=== PATIENT | female | born 2000 | race Caucasian/White ===

== ENCOUNTER 2018-02-09 00:58 | Emergency (ER) | payer BC ==
[~2018-02-09] VITALS: Ht 162.6 cm; Wt 57.4 kg
[2018-02-09 01:07] VITALS: TEMP 36.5; O2SAT 98; Ht 162.6 cm; Wt 57.4 kg
--- NOTE | 2018-02-09 01:15 | EMERGENCY ROOM VISIT NOTE ---
History Report prepared by Zachary: Billy Gil Under the Supervision of: Dr. Pricilla Marina D.O. First contact with patient: 01:02 Stated Complaint: ETOH History of Present Illness HPI is limited due to altered mental state secondary to alcohol intoxication. The patient is a 17 year old female who presents to the Emergency Room via due to a recent alcohol overdose. EMS states the patient was found in the bathroom by her RA actively vomiting. Patient states she was at an apartment tonight drinking. She states she is a sophomore. She adds she brought herself back to school alone. She denies any other drug use or medical problems. Patient states her last menstrual period was a couple of weeks ago. Source of History: patient, EMS History Limited By: AMS (Alcohol intoxication) Onset: Recent Associated Symptoms: + vomiting Review of Systems ROS is limited due to altered mental state secondary to alcohol intoxication. Past Medical & Surgical Past medical & surgical history is limited due to altered mental state secondary to alcohol intoxication. Family History Family history is limited due to altered mental state secondary to alcohol intoxication. Social History Occupation Status: [employer] student Current/Historical Medications Scheduled Control Pills ( Control Pills), 1 TAB PO DAILY Allergies Coded Allergies: No Known Allergies (Unverified , 02/09/18) Physical Exam Vital Signs Date Time Temp Pulse Resp B/P (MAP) Pulse Ox O2 Delivery O2 Flow Rate FiO2 02/09/18 06:57 105 13 103/56 97 02/09/18 05:52 81 02/09/18 05:00 81 18 84/43 97 Room Air 02/09/18 03:36 94 18 95/53 99 Room Air 02/09/18 02:02 78 18 80/42 98 Room Air 02/09/18 01:10 80 02/09/18 01:07 36.5 86 18 131/97 98 Room Air 02/09/18 01:07 98 Room Air Physical Exam General: Patient is tearful and smells of alcohol. HEENT: Head - normocephalic and atraumatic Pupils are equal, round, 6mm, and reactive to light. Extraocular eye muscles are intact, and sclera are anicteric. Nose - moist nasal mucosa without discharge. Mouth - moist buccal mucosa. Oropharynx is nonerythematous and there is no tonsillar exudate or edema noted. Neck: Supple; no JVD, nuchal rigidity, cervical lymphadenopathy. Heart: Tachycardic rate and rhythm. There is a normal S1 and S2 with no murmurs , clicks, or gallops appreciated. Lungs: Clear to auscultation bilaterally with no wheezes, rales, or rhonchi. Abdomen: Soft, completely nontender, nondistended, with good bowel sounds. There are no palpable pulsatile masses or hepatosplenomegaly. There is no guarding, rigidity, or rebound noted. Extremities: No evidence of cyanosis, clubbing, or edema. There are easily palpable peripheral pulses. Skin: warm and dry with good turgor and no rashes. Medical Decision & Procedures Laboratory Results 02/09/18 01:21 Test 02/09/18 01:21 Anion Gap 12.0 mmol/L (3-11) Est Creatinine Clear Calc Drug Dose 89.9 ml/min Estimated GFR () 111.9 Estimated GFR (Non- 96.6 BUN/Creatinine Ratio 19.8 (10-20) Calcium Level 8.2 mg/dl (8.5-10.1) Ethyl Alcohol mg/dL 242.0 mg/dl (0-3) Laboratory results per my review. ED Course 0100: Past medical records reviewed. The patient was evaluated in room B11A. A complete history and physical exam was performed. The patient was placed in the prone position to avoid aspiration. 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 Labs were drawn as above 0244: I reevaluated the patient. She is sleeping and hemodynamically stable. 0544: I reevaluated the patient. She is sleeping and hemodynamically stable. 0642: Upon reevaluation, the patient is awoke and resting comfortably. I discussed the hazards of excessive alcohol consumption. I discussed findings and results with her. She verbalized agreement of the treatment plan. She was discharged home. Medical Decision The patient is a 17 year old female who presents to the ED due to a recent alcohol overdose. Differential diagnosis includes alcohol overdose, drug intoxication, hypoglycemia, and head injury. Lab results show alcohol = 242, normal renal function, normal glucose, and potassium slightly low at 3.3. The patient was brought to the emergency department after consuming too much alcohol. There were no obvious signs of trauma or complaints of pain. They were observed closely throughout the night and remained stable while here in the ER. The patient was allowed time to sober up prior to discharge. I had a conversation with the patient about the hazards of such excessive alcohol use. Medication Reconcilliation Current Medication List: was personally reviewed by me Blood Pressure Screening Patient's blood pressure: Normal blood pressure Blood pressure disposition: Did not require urgent referral Impression Primary Impression: Alcohol overdose Scribe Attestation The scribe's documentation has been prepared under my direction and personally reviewed by me in its entirety. I confirm that the note above accurately reflects all work, treatment, procedures, and medical decision making performed by me. Departure Information Dispostion Home / Self-Care Forms HOME CARE DOCUMENTATION FORM, IMPORTANT VISIT INFORMATION Patient Instructions ED Overdose Alcohol, [facility]: [employer] Students and Alcohol Related Visits, My [facility] Additional Instructions Avoid such excessive alcohol use in the future. Tylenol 650 mg every 6 hours for headache. Drink plenty of fluids and take a bland diet today. Return to the emergency department for worsening symptoms or any medical concerns. Problem Qualifiers Primary Impression: Alcohol overdose Encounter type: initial encounter Injury intent: accidental or unintentional Qualified Codes: T51.91XA - Toxic effect of unspecified alcohol , accidental (unintentional), initial encounter
[2018-02-09] MEDS ORDERED: BCPILLS PO (01:38)
[2018-02-09 01:52] LABS: CALCIUM 8.2 mg/dl (8.5-10.1); CREATININE 0.87 mg/dl (0.60-1.20); POTASSIUM 3.3 mmol/L (3.5-5.1)
[2018-02-09 06:57] VITALS: BP 103/56; PULSE 105; O2SAT 97
== END 2018-02-09 06:58 | disposition home or self-care (01) ==
LOC: EDBD 00:58 → C.EDB 01:01
DX: T51.0X1A Toxic effect of ethanol, accidental (unintentional), initial encounter (principal); Y90.8 Blood alcohol level of 240 mg/100 ml or more; E87.6 Hypokalemia; Z79.3 Long term (current) use of hormonal contraceptives